=== PATIENT | male | born 1990 | race Two or more races ===

== ENCOUNTER 2021-12-03 07:50 | Emergency (ER) | payer SELFPAY ==
[~2021-12-03] VITALS: Ht 175.3 cm; Wt 78.0 kg
--- NOTE | 2021-12-03 08:05 | NUR ---
Patient came in to the er c/o left ankle pain and swelling s/p fell off the ladder 10/10 pain scale. connected to the monitor and pulse ox. kept comfortable, will continue to monitor accordingly.
--- NOTE | 2021-12-03 08:06 | NUR ---
DR HERRERA AT BEDSIDE FOR EVAL
[2021-12-03] MEDS ORDERED: MORPHINE SULFATE INJ 4 MG/ML DISP.SYRIN ONE ×2 (08:12→08:39)
--- NOTE | 2021-12-03 08:14 | NUR ---
cecily at bedside for x-ray
--- NOTE | 2021-12-03 08:19 | NUR ---
Order of morphine given IV will monitor RR and level of pain
[2021-12-03] MEDS ORDERED: MORPHINE SULFATE INJ 2 MG/ML DISP.SYRIN IV ONE ×2 (08:30→09:00)
--- NOTE | 2021-12-03 08:52 | NUR ---
pt c/o pain second order of morphine given IV will monitor
[2021-12-03] MEDS ORDERED: KETOROLAC TROMETHAMINE INJ 30 MG/ML VIAL ONE (09:28)
[2021-12-03] MEDS ORDERED: KETOROLAC TROMETHAMINE INJ 30 MG/ML VIAL IV ONE (09:30)
[2021-12-03] MEDS ORDERED: HYDROCODONE/APAP 5/325MG TABLET PO ONE (09:30)
[2021-12-03] MEDS ORDERED: HYDR-4209 PO (09:31)
[2021-12-03] MEDS ORDERED: IBUP-1957 PO (09:31)
[2021-12-03] MEDS ORDERED: HYDROCODONE/APAP 5/325MG TABLET ONE (09:33)
[2021-12-03 09:58] VITALS: BP 114/88
== END 2021-12-03 10:00 | disposition home or self-care (01) ==
LOC: ER 07:55
DX: S92.002A Unspecified fracture of left calcaneus, initial encounter for closed fracture (principal); S93.402A Sprain of unspecified ligament of left ankle, initial encounter; W11.XXXA Fall on and from ladder, initial encounter; Y93.89 Activity, other specified; Y92.89 Other specified places as the place of occurrence of the external cause; Y99.8 Other external cause status
CPT/HCPCS: 73610; 73630; 96374; 96375; 96376; 99284; J1885; J2270 ×2